=== PATIENT | female | born 1970 | race Caucasian/White ===

== ENCOUNTER 2017-08-24 09:31 | Emergency (ER) | payer OTHER ==
[~2017-08-24] VITALS: Ht 162.6 cm; Wt 68.0 kg
[~2017-08-24 09:31] MED LIST: AUGMENTIN 875875 MG PO; IBUPROFEN 200200 M1 PO; IBUPROFEN 800800 M1 PO; MECLIZINE HCL25 M1 PO; NOHOMEMEDICATIONS; ONDANSETRON HCL4 M2 PO; ROBAXIN 750 MG750 M1 PO; ZOFRAN ODT4 MG PO; ZOLOFT
[2017-08-24 09:58] LABS: ABSOLUTE BASOPHILS 0.1 thou/uL (0.0-0.2); ABSOLUTE EOSINOPHILS 0.1 thou/uL (0.0-0.7); ABSOLUTE LYMPHOCYTES 2.5 thou/uL (0.8-5.3); ABSOLUTE MONOCYTES 0.5 thou/uL (0.0-1.2); ABSOLUTE NEUTROPHILS 5.9 thou/uL (1.6-8.1); BASOPHILS 1.1 %; EOSINOPHILS 0.9 %; HEMATOCRIT 43.3 % (37.0-47.0); HEMOGLOBIN 15.4 gm/dL (12.0-15.0); LYMPHOCYTES 27.8 %; MCH 32.5 pg (26.0-34.0); MCHC 35.6 g/dL (28.0-37.0); MCV 91.4 fL (80.0-100.0); MPV 6.8 fl. (7.2-11.1); NUCLEATED RBCS 0 /100WBC; PLATELET COUNT* 285 thou/uL (150-400); POLYS 65.2 %; RBC 4.74 mil/uL (4.20-5.00); RDW-CV 12.6 % (10.5-14.5); WBC 9.1 thou/uL (4.0-11.0)
[2017-08-24 10:05] LABS: INR 1.1; PROTIME 10.5 Seconds (9.20-11.50)
[2017-08-24 10:06] LABS: ANION GAP 9 mmol/L (7-16); BUN 8 mg/dL (7-18); CALCIUM 9.2 mg/dL (8.5-10.1); CHLORIDE 103 mmol/L (98-107); CO2 26 mmol/L (21-32); CREATININE 0.8 mg/dL (0.6-1.3); GLUCOSE 94 mg/dL (70-99); POTASSIUM 3.7 mmol/L (3.5-5.1); SODIUM 138 mmol/L (136-145)
[2017-08-24 10:17] LABS: ALBUMIN 3.9 g/dL (3.4-5.0); ALKALINE PHOSPHATASE 88 U/L (46-116); LIPASE 96 U/L (73-393); NT-PRO BRAIN NAT PEPTIDE 30 pg/mL (<300); SGOT 15 U/L (15-37); SGPT 29 U/L (30-65); TOTAL BILIRUBIN 0.7 mg/dL (<0.1-1.0); TOTAL PROTEIN 7.2 g/dL (6.4-8.2); TROPONIN-I LEVEL <0.06 ng/mL (<0.06)
[2017-08-24] MEDS ORDERED: AMOXICILLIN500 M1 PO (12:10)
[2017-08-24] MEDS ORDERED: HYDROCODON-ACE1 EAC7 PO (12:10)
[2017-08-24 12:20] VITALS: BP 109/54
--- NOTE | 2017-08-24 16:10 | EKG ---
[place] [address] ELECTROCARDIOGRAM REPORT Name: MATTHIAS TREADWELL Room: [facility]#: [id number] Admission: 08/24/17 Attend Phys: Discharge: 08/24/17 Date of : 74 Report #: [id number] THIS REPORT FOR: //name// [facility] ED Test Date: 2017-08-24 Test Time: 09:35:56 Pat Name: MATTHIAS MILE Department: Room: Gender: F Can Doffer: : 1970 Requested By: Jonny Da Silva Order Number: [id number] : Alex Crews Measurements Intervals [place] Rate: 64 P: 62 [place]: 158 QRS: 72 QRSD: 93 T: 58 QT: 375 QTc: 387 Interpretive Statements Sinus rhythm Compared to ECG 11/27/2016 10:35:37 No significant changes Electronically Signed On 08-24-2017 16:10:36 CDT by Alex Crews [email or web address] <ELECTRONICALLY SIGNED> By: Alex Crews MD, [facility] 08/24/17 1610 0935 0935 Alex Crews MD, FACC /EPI
== END 2017-08-24 12:21 | disposition home or self-care (01) ==
LOC: M.ERS 09:31
PROVIDERS: Emergency Medicine
DX: N63.20 Unspecified lump in the left breast, unspecified quadrant (principal); R07.89 Other chest pain; G43.909 Migraine, unspecified, not intractable, without status migrainosus; F17.210 Nicotine dependence, cigarettes, uncomplicated

== ENCOUNTER 2018-04-06 00:47 | Emergency (ER) | payer OTHER ==
[~2018-04-06] VITALS: Ht 162.6 cm; Wt 72.6 kg
[~2018-04-06 00:47] MED LIST changes: +AMOXICILLIN500 M1 PO; +HYDROCODON-ACE1 EAC7 PO
[2018-04-06] MEDS ORDERED: FLEXERIL PO (02:03)
[2018-04-06 02:11] VITALS: BP 127/61
== END 2018-04-06 02:11 | disposition home or self-care (01) ==
LOC: M.ERS 00:47
DX: S06.0X0A Concussion without loss of consciousness, initial encounter (principal); W17.89XA Other fall from one level to another, initial encounter; Y93.89 Activity, other specified; Y92.89 Other specified places as the place of occurrence of the external cause; Y99.8 Other external cause status; M54.2 Cervicalgia; G43.909 Migraine, unspecified, not intractable, without status migrainosus; F17.210 Nicotine dependence, cigarettes, uncomplicated

== ENCOUNTER 2018-05-06 21:22 | Emergency (ER) | payer OTHER ==
[~2018-05-06] VITALS: Ht 162.6 cm; Wt 72.6 kg
[~2018-05-06 21:22] MED LIST changes: +FLEXERIL PO
[2018-05-06] MEDS ORDERED: DEPRESSION (21:41)
[2018-05-06 22:02] LABS: ABSOLUTE EOSINOPHILS 0.1 thou/uL (0.0-0.7); ABSOLUTE MONOCYTES 0.4 thou/uL (0.0-1.2); ABSOLUTE NEUTROPHILS 4.3 thou/uL (1.6-8.1); BASOPHILS 0.6 %; EOSINOPHILS 1.7 %; HEMATOCRIT 42.4 % (37.0-47.0); HEMOGLOBIN 14.7 gm/dL (12.0-15.0); LYMPHOCYTES 38.1 %; MCHC 34.7 g/dL (28.0-37.0); MCV 92.3 fL (80.0-100.0); MONOCYTES 4.5 %; MPV 7.3 fl. (7.2-11.1); NUCLEATED RBCS 0 /100WBC; PLATELET COUNT* 290 thou/uL (150-400); POLYS 55.1 %; RDW-CV 12.7 % (10.5-14.5); WBC 7.8 thou/uL (4.0-11.0)
[2018-05-06 22:05] LABS: ANION GAP 11 mmol/L (7-16); BUN 11 mg/dL (7-18); CALCIUM 9.1 mg/dL (8.5-10.1); CHLORIDE 103 mmol/L (98-107); CO2 25 mmol/L (21-32); CREATININE 0.8 mg/dL (0.6-1.3); GLUCOSE 129 mg/dL (70-99); POTASSIUM 3.5 mmol/L (3.5-5.1); SODIUM 139 mmol/L (136-145)
[2018-05-06 22:11] LABS: ALBUMIN 3.9 g/dL (3.4-5.0); ALKALINE PHOSPHATASE 84 U/L (46-116); LIPASE 137 U/L (73-393); SGOT 12 U/L (15-37); SGPT 30 U/L (30-65); TOTAL BILIRUBIN 0.2 mg/dL (<0.1-1.0); TOTAL PROTEIN 7.2 g/dL (6.4-8.2); TROPONIN-I LEVEL <0.06 ng/mL (<0.06)
[2018-05-06 22:15] LABS: APTT 24.4 Seconds (25.0-31.3); PROTIME 10.1 Seconds (9.20-11.50)
[2018-05-06] MEDS ORDERED: SYNTHROID25 MC1 PO (22:59)
[2018-05-06 23:25] VITALS: BP 111/52
--- NOTE | 2018-05-07 11:19 | EKG ---
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
== END 2018-05-06 23:25 | disposition home or self-care (01) ==
LOC: M.ERS 21:22
PROVIDERS: Personal Emergency Response Attendant
DX: R07.89 Other chest pain (principal); G43.909 Migraine, unspecified, not intractable, without status migrainosus; F32.9 Major depressive disorder, single episode, unspecified; E03.9 Hypothyroidism, unspecified; F17.210 Nicotine dependence, cigarettes, uncomplicated; Z98.890 Other specified postprocedural states; Z85.41 Personal history of malignant neoplasm of cervix uteri; Z88.8 Allergy status to other drugs, medicaments and biological substances

== ENCOUNTER 2019-09-08 23:25 | Emergency (ER) | payer OTHER ==
[~2019-09-08] VITALS: Ht 165.1 cm; Wt 70.3 kg
[~2019-09-08 23:25] MED LIST changes: +DEPRESSION; +SYNTHROID25 MC1 PO
[2019-09-08 23:56] LABS: ABSOLUTE BASOPHILS 0.1 thou/uL (0.0-0.2); ABSOLUTE EOSINOPHILS 0.1 thou/uL (0.0-0.7); ABSOLUTE LYMPHOCYTES 2.8 thou/uL (0.8-5.3); ABSOLUTE MONOCYTES 0.6 thou/uL (0.0-1.2); ABSOLUTE NEUTROPHILS 9.7 thou/uL (1.6-8.1); BASOPHILS 0.9 %; EOSINOPHILS 0.7 %; HEMATOCRIT 38.4 % (37.0-47.0); HEMOGLOBIN 13.6 gm/dL (12.0-15.0); MCH 32.2 pg (26.0-34.0); MCHC 35.5 g/dL (28.0-37.0); MCV 90.8 fL (80.0-100.0); MONOCYTES 4.8 %; MPV 7.3 fl. (7.2-11.1); NUCLEATED RBCS 0 /100WBC; PLATELET COUNT* 269 thou/uL (150-400); POLYS 72.6 %; RBC 4.23 mil/uL (4.20-5.00); RDW-CV 12.7 % (10.5-14.5); WBC 13.3 thou/uL (4.0-11.0)
[2019-09-09] LABS: CALCIUM 8.6 mg/dL (8.5-10.1); CREATININE 0.8 mg/dL (0.6-1.3); POTASSIUM 3.9 mmol/L (3.5-5.1)
[2019-09-09 00:05] LABS: ALBUMIN 3.7 g/dL (3.4-5.0); TOTAL BILIRUBIN 0.3 mg/dL (<0.1-1.0); TOTAL PROTEIN 6.7 g/dL (6.4-8.2)
[2019-09-09] MEDS ORDERED: HYDROCODON-ACE1 EAC7 PO (01:39)
[2019-09-09] MEDS ORDERED: ZOFRAN ODT4 MG PO (01:39)
[2019-09-09] MEDS ORDERED: CYCLOBENZAPRINE5 MG PO (01:39)
[2019-09-09 01:52] VITALS: BP 127/60
--- NOTE | 2019-09-09 14:46 | EKG ---
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: [place] : 1970 Requested By: Emi Wu Order Number: [id number] MD: Quinton Livingston Measurements Intervals [place] Rate: 79 P: 62 [place]: 151 QRS: 74 QRSD: 90 T: 50 QT: 362 QTc: 416 Interpretive Statements Sinus rhythm Baseline wander in lead(s) II Compared to ECG 05/06/2018 21:28:36 No significant changes Electronically Signed On 09-09-2019 14:44:29 CDT by Quinton Livingston [email or web address] <ELECTRONICALLY SIGNED> By: Quinton Livingston MD, [facility] 09/09/19 1444 2339 2339 Quinton Livingston MD, [facility] /EPI
== END 2019-09-09 01:53 | disposition home or self-care (01) ==
LOC: M.ERS 23:25
PROVIDERS: Personal Emergency Response Attendant
DX: S43.492A Other sprain of left shoulder joint, initial encounter (principal); S20.312A Abrasion of left front wall of thorax, initial encounter; S70.311A Abrasion, right thigh, initial encounter; S80.212A Abrasion, left knee, initial encounter; S40.212A Abrasion of left shoulder, initial encounter; S70.212A Abrasion, left hip, initial encounter; S09.90XA Unspecified injury of head, initial encounter; M62.838 Other muscle spasm; E03.9 Hypothyroidism, unspecified; G43.909 Migraine, unspecified, not intractable, without status migrainosus; F32.9 Major depressive disorder, single episode, unspecified; F17.210 Nicotine dependence, cigarettes, uncomplicated; Z98.51 Tubal ligation status; Z85.41 Personal history of malignant neoplasm of cervix uteri; Z88.8 Allergy status to other drugs, medicaments and biological substances; V86.59XA Driver of other special all-terrain or other off-road motor vehicle injured in nontraffic accident, initial encounter; Y93.89 Activity, other specified; Y92.89 Other specified places as the place of occurrence of the external cause; Y99.8 Other external cause status

== ENCOUNTER 2019-10-03 09:54 | Emergency (ER) | payer OTHER ==
[~2019-10-03] VITALS: Ht 162.6 cm; Wt 72.6 kg
[~2019-10-03 09:54] MED LIST changes: +CYCLOBENZAPRINE5 MG PO
[2019-10-03 11:02] LABS: ABSOLUTE BASOPHILS 0.1 thou/uL (0.0-0.2); ABSOLUTE EOSINOPHILS 0.1 thou/uL (0.0-0.7); ABSOLUTE LYMPHOCYTES 2.1 thou/uL (0.8-5.3); ABSOLUTE MONOCYTES 0.5 thou/uL (0.0-1.2); ABSOLUTE NEUTROPHILS 6.3 thou/uL (1.6-8.1); BASOPHILS 0.9 %; EOSINOPHILS 1.6 %; HEMATOCRIT 38.8 % (37.0-47.0); HEMOGLOBIN 13.6 gm/dL (12.0-15.0); LYMPHOCYTES 23.4 %; MCH 32.2 pg (26.0-34.0); MCHC 35.1 g/dL (28.0-37.0); MCV 91.5 fL (80.0-100.0); MONOCYTES 5.1 %; MPV 7.2 fl. (7.2-11.1); NUCLEATED RBCS 0 /100WBC; PLATELET COUNT* 265 thou/uL (150-400); RBC 4.24 mil/uL (4.20-5.00); RDW-CV 12.6 % (10.5-14.5); WBC 9.1 thou/uL (4.0-11.0)
[2019-10-03 11:07] LABS: URINE BILIRUBIN NEGATIVE (Negative); URINE BLOOD 2+ (Negative); URINE CLARITY CLEAR; URINE COLOR YELLOW; URINE GLUCOSE-RANDOM NEGATIVE (Negative); URINE KETONES NEGATIVE (Negative); URINE LEUKOCYTES-REFLEX NEGATIVE (Negative); URINE NITRITE-REFLEX NEGATIVE (Negative); URINE PROTEIN NEGATIVE (Negative); URINE SPECIFIC GRAVITY 1.015 (1.005-1.030); URINE UROBILINOGEN 0.2 E.U./dl (0.2-1.0)
[2019-10-03 11:09] LABS: CALCIUM 8.3 mg/dL (8.5-10.1); CREATININE 0.7 mg/dL (0.6-1.3); POTASSIUM 3.8 mmol/L (3.5-5.1)
[2019-10-03 11:14] LABS: ALBUMIN 3.4 g/dL (3.4-5.0); TOTAL BILIRUBIN 0.5 mg/dL (<0.1-1.0); TOTAL PROTEIN 6.4 g/dL (6.4-8.2)
[2019-10-03 11:14] LABS: AMP/METHAMP Negative (Negative); BARBITURATES Negative (Negative); BENZODIAZEPINES Negative (Negative); COCAINE Negative (Negative); METHADONE Negative (Negative); OPIATES Negative (Negative); PCP Negative (Negative); THC Negative (Negative)
[2019-10-03 11:20] LABS: AMORPHOUS URATES Few /LPF (None Seen); BACTERIA-REFLEX 1-9 Few /HPF (None Seen); CASTS None Seen /LPF (None Seen); MUCUS 0-3 Light strn/LPF (None Seen); SQUAMOUS >10 Many /LPF (0-3); URINE RBC 3-10 Few /HPF (0-2); URINE WBC-REFLEX None Seen /HPF (0-5)
[2019-10-03 12:44] VITALS: BP 106/58
== END 2019-10-03 12:44 | disposition home or self-care (01) ==
LOC: M.ERS 09:54
PROVIDERS: Personal Emergency Response Attendant
DX: G43.909 Migraine, unspecified, not intractable, without status migrainosus (principal); E03.9 Hypothyroidism, unspecified; F32.9 Major depressive disorder, single episode, unspecified; F17.210 Nicotine dependence, cigarettes, uncomplicated; Z85.41 Personal history of malignant neoplasm of cervix uteri; Z98.51 Tubal ligation status; Z88.8 Allergy status to other drugs, medicaments and biological substances

== ENCOUNTER 2020-05-09 02:56 | Inpatient (IN) | payer OTHER ==
[~2020-05-09] VITALS: Ht 165.1 cm; Wt 70.8 kg
--- NOTE | ~2020-05-09 | OP ---
[address] [address] OPERATIVE REPORT Name: MILEMATTHIAS Room: [address] IN M.R.#: [id number] Admission: 05/09/20 Attend Phys: Francois Rolle Discharge: 05/12/20 Date of : 74 Report #: [id number] THIS REPORT FOR: cc: FAM - No family physician/PCP FAM - No family physician/PCP ~ Raquel Wang DO DICTATED BY: Dion Camp DO DATE OF SERVICE: 05/11/2020 PREOPERATIVE DIAGNOSES: Gallstone pancreatitis and cholecystitis. POSTOPERATIVE DIAGNOSES: Gallstone pancreatitis and cholecystitis. PROCEDURE PERFORMED: Laparoscopic cholecystectomy with intraoperative cholangiogram and surgeon interpretation of images. SURGEON: Raquel Wang DO CO-SURGEON: Dion Camp DO, PGY-4 PEDIATRIC REGISTERED NURSE: None. ANESTHESIA: General and regional. ESTIMATED BLOOD LOSS: 20 mL. SPECIMEN: Gallbladder. COMPLICATIONS: None. FINDINGS: Edematous gallbladder with evidence of acute cholecystitis. Cholangiogram showed no common bile duct or hepatic duct obstruction with free flow of contrast into the duodenum. 15 seconds of fluoroscopy. HISTORY OF PRESENT ILLNESS: The patient is a 49-year-old female who was admitted to the hospital with gallstone pancreatitis. She also had CT findings consistent with cholecystitis. It was determined that she would benefit from laparoscopic cholecystectomy with intraoperative cholangiogram. Risks, complications, and benefits were discussed at length with her and she agreed to proceed with surgery. DESCRIPTION OF PROCEDURE: After consent was obtained, the patient was taken to the operating room and placed in the supine position. SCDs applied to bilateral lower extremities, safety belt placed across the patient's waist. HAROON Hayes was [place] [id number] OPERATIVE REPORT Name: MATTHIAS TREADWELL Room: [address] IN ..#: [id number] Admission: 05/09/20 Attend Phys: Francois Rolle Discharge: 05/12/20 Date of : 74 Report #: [id number] given during her hospitalization and this was continued during surgery. The patient underwent general endotracheal anesthesia without any complication. The patient's abdomen was prepped and draped in a standard sterile fashion. A timeout was performed confirming patient and procedure. An 11 blade scalpel was used to make an incision just below the umbilicus in a horizontal fashion. S retractor was used to bluntly dissect down to the level of the fascia. Once the fascia was encountered, it was grasped between 2 Kochers and elevated. Electrocautery was used to incise the fascia. Two stitches of 0 Vicryl were placed on either side of the fascia. Hemostat was used to bluntly enter the peritoneum. Finger sweep was performed to confirm no intraabdominal adhesions. A 10 mm Shawna trocar was inserted into the abdomen and secured in place. Insufflation was initiated without any complication. Camera was then inserted and intra-abdominal contents were inspected. The patient was placed in reverse Trendelenburg, rotated towards the left. A 5 mm trocar was placed subxiphoid under direct visualization, two more 5 mm trocars were placed in the right upper quadrant under direct visualization. Gallbladder was grasped and elevated. There were multiple adhesions to the posterior portion of the gallbladder and these were taken down with hook electrocautery. A combination of blunt dissection using a suction project lead was used to help strip the gallbladder of its fatty adhesions. Once the gallbladder was cleaned off, there was a large artery just medial to the presumed duct that we could easily visualize, this was isolated with a [place] dissector. It was clipped and cut to allow for better access to the cystic duct. We then visualized our cystic duct and the lateral aspect of the gallbladder. This was carefully dissected out using a combination of hook electrocautery and [place] dissection. Once the duct was isolated and seen going up into the gallbladder, we then used a Valdes clamp to go across the proximal portion of the duct. We placed our catheter within the cystic duct and saline was flushed easily. We then brought our fluoroscopy unit into the sterile field. Images were taken to confirm correct position and then under live fluoroscopy, we injected the cystic duct with contrast. Contrast could be seen flowing down easily into the common bile duct and into the duodenum. The pancreatic duct and hepatic ducts were also visualized and were free from any obstructive process. At this point, we canceled fluoroscopy after about 15 seconds and removed the unit from the sterile field. We then placed the patient back in reverse Trendelenburg. The Valdes clamp was removed. There was another small artery that was found on the medial aspect and this was clipped and cut. Due to the large size of the cystic duct, we then elected to upsize our 5 mm subxiphoid port to a 12 mm trocar. We then placed a large clip fastener technologist into the abdomen and placed 3 clips proximally and 2 clips distally on the cystic duct. The structure was cut. We then used hook electrocautery to carefully dissect the gallbladder off the bed of the liver. The gallbladder was then placed in a laparoscopic EndoCatch bag. Liver bed was inspected. Once hemostasis was assured we irrigated the right upper quadrant copiously with saline. All fluid was suctioned out. Clips were inspected. There was no evidence of bleeding or bile leak. The gallbladder and its contents were removed from the [facility] [address] [place] [address] OPERATIVE REPORT Name: MATTHIAS TREADWELL Room: [address] IN ..#: [id number] Admission: 05/09/20 Attend Phys: Francois Rolle Discharge: 05/12/20 Date of : 74 Report #: [id number] infraumbilical trocar site. Infraumbilical fascia was then reapproximated with 1 stitch of 0 Vicryl in a ikjepo-hk-alkay fashion. Subcutaneous tissue was reapproximated with 3-0 Vicryl and all skin incisions reapproximated with 4-0 Monocryl in a subcuticular. Sterile skin glue was applied to all incisions. All needle, instrument, and sponge counts were correct x 2 at the end of the case. The patient was then awoken from general anesthesia and transferred to PACU in stable condition. By: [id number] Wang DO /nt
[2020-05-09 03:03] VITALS: BP 107/47
[2020-05-09 03:29] LABS: NUCLEATED RBCS 0 /100WBC
[2020-05-09 03:32] LABS: ABSOLUTE BASOPHILS 0.1 thou/uL (0.0-0.2); ABSOLUTE EOSINOPHILS 0.1 thou/uL (0.0-0.7); ABSOLUTE LYMPHOCYTES 2.2 thou/uL (0.8-5.3); ABSOLUTE MONOCYTES 0.6 thou/uL (0.0-1.2); ABSOLUTE NEUTROPHILS 7.8 thou/uL (1.6-8.1); BASOPHILS 0.9 %; EOSINOPHILS 0.6 %; HEMATOCRIT 40.9 % (37.0-47.0); HEMOGLOBIN 14.4 gm/dL (12.0-15.0); LYMPHOCYTES 20.1 %; MCH 31.9 pg (26.0-34.0); MCHC 35.3 g/dL (28.0-37.0); MCV 90.6 fL (80.0-100.0); MONOCYTES 5.9 %; MPV 6.8 fl. (7.2-11.1); PLATELET COUNT* 266 thou/uL (150-400); POLYS 72.5 %; RBC 4.52 mil/uL (4.20-5.00); RDW-CV 12.1 % (10.5-14.5); WBC 10.7 thou/uL (4.0-11.0)
[2020-05-09 03:40] LABS: CALCIUM 9.8 mg/dL (8.5-10.1); CREATININE 0.9 mg/dL (0.6-1.3); POTASSIUM 3.7 mmol/L (3.5-5.1)
[2020-05-09 03:47] LABS: PROTIME 10.6 Seconds (9.20-11.50)
[2020-05-09 03:51] LABS: ALBUMIN 3.8 g/dL (3.4-5.0); TOTAL BILIRUBIN 0.7 mg/dL (<0.1-1.0); TOTAL PROTEIN 6.9 g/dL (6.4-8.2)
[2020-05-09 05:34] LABS: URINE BILIRUBIN NEGATIVE (Negative); URINE BLOOD TRACE (Negative); URINE CLARITY CLEAR; URINE COLOR YELLOW; URINE GLUCOSE-RANDOM NEGATIVE (Negative); URINE KETONES NEGATIVE (Negative); URINE LEUKOCYTES-REFLEX NEGATIVE (Negative); URINE NITRITE-REFLEX NEGATIVE (Negative); URINE PROTEIN NEGATIVE (Negative); URINE SPECIFIC GRAVITY <= 1.005 (1.005-1.030); URINE UROBILINOGEN 0.2 E.U./dl (0.2-1.0)
[2020-05-09 05:41] LABS: AMP/METHAMP Negative (Negative); BARBITURATES Negative (Negative); BENZODIAZEPINES Negative (Negative); COCAINE Negative (Negative); METHADONE Negative (Negative); OPIATES POSITIVE (Negative); PCP Negative (Negative); THC Negative (Negative)
[2020-05-09 06:50] VITALS: BP 114/45
[2020-05-09 07:25] VITALS: BP 105/56
[2020-05-09 09:10] LABS: CHOLESTEROL 237 mg/dL (<200); HDL CHOLESTEROL 27 mg/dL (>40); LDL CHOLESTEROL 185 mg/dL (<100); SERUM ASSESSMENT Clear; TC:HDL 8.8 Ratio (Not establshd); TRIGLYCERIDE 129 mg/dL (<150); VLDL 26 mg/dL (<40)
[2020-05-09 16:39] VITALS: BP 94/46
[2020-05-09 20:42] VITALS: BP 100/50
[2020-05-10 04:36] LABS: HEMATOCRIT 36.3 % (37.0-47.0); HEMOGLOBIN 12.6 gm/dL (12.0-15.0); MCH 31.8 pg (26.0-34.0); MCHC 34.6 g/dL (28.0-37.0); MCV 92.1 fL (80.0-100.0); MPV 6.6 fl. (7.2-11.1); RBC 3.94 mil/uL (4.20-5.00); RDW-CV 12.5 % (10.5-14.5); WBC 9.4 thou/uL (4.0-11.0)
[2020-05-10 05:06] LABS: ALBUMIN 2.8 g/dL (3.4-5.0); CREATININE 0.8 mg/dL (0.6-1.3); MAGNESIUM 1.8 mg/dL (1.8-2.4); POTASSIUM 3.7 mmol/L (3.5-5.1); TOTAL BILIRUBIN 0.9 mg/dL (<0.1-1.0); TOTAL PROTEIN 5.3 g/dL (6.4-8.2)
[2020-05-10 05:26] LABS: CALCIUM 7.6 mg/dL (8.5-10.1)
[2020-05-10 08:01] VITALS: BP 102/58
[2020-05-10 16:43] VITALS: BP 95/54
[2020-05-10 20:00] VITALS: BP 95/51
[2020-05-11 04:57] LABS: HEMOGLOBIN 11.2 gm/dL (12.0-15.0); MCH 31.8 pg (26.0-34.0); MCHC 34.9 g/dL (28.0-37.0); MCV 91.2 fL (80.0-100.0); MPV 6.9 fl. (7.2-11.1); RBC 3.51 mil/uL (4.20-5.00); RDW-CV 12.3 % (10.5-14.5); WBC 6.1 thou/uL (4.0-11.0)
[2020-05-11 05:28] LABS: ALBUMIN 2.6 g/dL (3.4-5.0); CALCIUM 7.5 mg/dL (8.5-10.1); CREATININE 0.7 mg/dL (0.6-1.3); POTASSIUM 3.4 mmol/L (3.5-5.1); TOTAL BILIRUBIN 0.6 mg/dL (<0.1-1.0); TOTAL PROTEIN 5.2 g/dL (6.4-8.2)
--- NOTE | 2020-05-11 05:35 | CON ---
[address] [address] CONSULTATION Name: MILEMATTHIAS CAROLINA Room: [address] IN M.R.#: [id number] Admission: 05/09/20 Attend Phys: Francois Rolle Discharge: Date of : 74 Report #: [id number] THIS REPORT FOR: cc: FAM - No family physician/PCP FAM - No family physician/PCP ~ Carlos Galaviz DO DATE OF SERVICE: 05/10/2020 REFERRING PHYSICIAN: Kapil Morrow DO REASON FOR CONSULTATION: Pancreatitis. IMPRESSION: 1. Gallstone pancreatitis, mild. 2. Mildly elevated liver function tests, but negative MRCP. RECOMMENDATIONS: I reviewed the patient's laboratory test, abdominal ultrasound, CAT scan and MRCP and I agreed that the patient's likely source of pancreatitis is from symptomatic cholelithiasis. Fortunately, her CT scan does not demonstrate much in the way of peripancreatic inflammation, so she should be okay to undergo laparoscopic cholecystectomy whenever feasible with the surgery. I do not feel that she needs to have a preoperative ERCP since there is no evidence for many stones within the biliary tree. I have discussed the plans with the patient as well and she is agreeable to the same. HISTORY OF PRESENT ILLNESS: The patient is a pleasant 49-year-old white female who had a twinge of abdominal pain earlier this week, which got better, but then had really severe abdominal pain that made her to come to the hospital. She has never had this kind of pain before. She did have occasional problems with chronic reflux and indigestion, but nothing on a regular basis. She denies any complaints normally with abdominal pain. She is not taking any anti-inflammatories other than ibuprofen on a p.r.n. basis. She denies dysphagia, odynophagia, postprandial pain normally or any problem with her bowels or bowel frequency. She denied any black stools, tarry stools or any blood in stools. She has never undergone previous studies of her upper and lower GI tract in the past. She presented to the emergency room with these complaints and that had been ongoing for about 18-20 hours and was found to have gallstone pancreatitis. She is now here for further evaluation. ALLERGIES: PAXIL. MEDICATIONS AT HOME: Just p.r.n. medications. She does [place] [address] CONSULTATION Name: MATTHIAS TREADWELL Room: [address]#: [id number] Admission: 05/09/20 Attend Phys: Francois Rolle Discharge: Date of : 74 Report #: [id number] PAST MEDICAL HISTORY: Remarkable for previous bilateral tubal ligation, otherwise has been healthy. SOCIAL HISTORY: She does smoke, cut down from 3 packs a day to 1 pack a day. She does not drink alcohol. She denies any drug use. FAMILY HISTORY: Negative. PHYSICAL EXAMINATION: GENERAL: Pleasant 49-year-old white female who is awake and alert. CARDIOPULMONARY: Revealed a regular rate and rhythm. LUNGS: Clear. ABDOMEN: Soft, minimally tender in epigastric area. No rebound or guarding noted. LABORATORY TESTS: On admission revealed a white count of 10.7, hemoglobin 14.4, platelet count 266,000, MCV is 98.6 and RDW is 12.1. Her complete metabolic panel: Sodium 136, potassium 3.7, chloride 101, bicarbonate 24, BUN 15, creatinine 0.9. Her total bilirubin is 0.7, alkaline phosphatase is 95, AST 42, ALT is 50. Her lipase was 28,629. Her drug screen was positive for opiates. test, was negative. Alcohol level was negative. CT scan of the abdomen and pelvis revealed diffuse gallbladder wall thickening suspicious for cholecystitis. There was diffuse edema of the gallbladder wall with minimal pericholecystic fluid. The pancreas appeared normal on CT scan. MRCP performed on the 1st revealed diffuse wall thickening, adjacent stranding and edema of the gallbladder, compatible with cholecystitis. She does have mild dilation of the common bile duct without evidence for any definite intraductal stones or filling defects. No evidence for stones were noted. There is some mild stranding around the duodenum and pancreatic head, possibly related to underlying gallbladder disease or possible pancreatitis. There also appeared to be a gallstone in the neck of the gallbladder or in the cystic duct. Her most recent lipase is down to 470 as of today with normalization of her liver function tests. DISCUSSION: At the present time, the patient appears to have mild gallstone pancreatitis. We would proceed with typical measures for the same and proceed with surgical intervention when feasible. I will defer the timing of that to surgery at this time. [address] [address] CONSULTATION Name: MATTHIAS TREADWELL Room: [address] IN M.R.#: [id number] Admission: 05/09/20 Attend Phys: Francois Rolle Discharge: Date of : 74 Report #: [id number] I have discussed the plans with the patient as well and she is agreeable to the same. <ELECTRONICALLY SIGNED> By: Carlos Galaviz DO 05/11/20 0535 1718 1939Carlos Galaviz DO /nt
[2020-05-11 07:48] VITALS: BP 109/47
[2020-05-11 09:05] VITALS: BP 109/47
[2020-05-11 09:43] VITALS: BP 109/47
[2020-05-11 16:29] VITALS: BP 108/45
[2020-05-11 19:37] VITALS: BP 99/55
[2020-05-12 00:24] VITALS: BP 104/61
[2020-05-12 04:36] LABS: HEMATOCRIT 30.5 % (37.0-47.0); HEMOGLOBIN 10.5 gm/dL (12.0-15.0); MCH 31.4 pg (26.0-34.0); MCHC 34.5 g/dL (28.0-37.0); MCV 90.9 fL (80.0-100.0); RBC 3.35 mil/uL (4.20-5.00); RDW-CV 12.1 % (10.5-14.5); WBC 11.5 thou/uL (4.0-11.0)
[2020-05-12 05:01] LABS: ALBUMIN 2.7 g/dL (3.4-5.0); CALCIUM 7.9 mg/dL (8.5-10.1); CREATININE 0.8 mg/dL (0.6-1.3); MAGNESIUM 2.1 mg/dL (1.8-2.4); TOTAL BILIRUBIN 0.3 mg/dL (<0.1-1.0); TOTAL PROTEIN 5.5 g/dL (6.4-8.2)
[2020-05-12] MEDS ORDERED: HYDROCODON-ACE1 EAC7 PO (07:38)
[2020-05-12] MEDS ORDERED: IBU800 MG PO (07:38)
[2020-05-12 08:20] VITALS: BP 100/50
[2020-05-12 11:38] VITALS: BP 100/50
--- NOTE | 2020-05-12 13:43 | EKG ---
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
== END 2020-05-12 11:50 | disposition home or self-care (01) | DRG 418 ==
LOC: M.ERS 02:56 → M.TBA-ER 06:14 → M.3W 07:05
PROVIDERS: Emergency Medicine; Internal Medicine; Surgery; ADMIT Internal Medicine; ATTEND Internal Medicine
DX: K85.10 Biliary acute pancreatitis without necrosis or infection (principal); K80.00 Calculus of gallbladder with acute cholecystitis without obstruction; G43.909 Migraine, unspecified, not intractable, without status migrainosus; F32.9 Major depressive disorder, single episode, unspecified; E03.9 Hypothyroidism, unspecified; F41.9 Anxiety disorder, unspecified; F17.200 Nicotine dependence, unspecified, uncomplicated; Z20.822 Contact with and (suspected) exposure to COVID-19; Z85.41 Personal history of malignant neoplasm of cervix uteri; Z79.899 Other long term (current) drug therapy; Z88.8 Allergy status to other drugs, medicaments and biological substances

== ENCOUNTER 2020-07-20 21:12 | Emergency (ER) | payer OTHER ==
[~2020-07-20] VITALS: Ht 162.6 cm; Wt 74.8 kg
[~2020-07-20 21:12] MED LIST changes: +IBU800 MG PO
[2020-07-20 21:26] LABS: URINE BILIRUBIN NEGATIVE (Negative); URINE BLOOD 1+ (Negative); URINE CLARITY CLEAR; URINE COLOR YELLOW; URINE GLUCOSE-RANDOM NEGATIVE (Negative); URINE KETONES NEGATIVE (Negative); URINE LEUKOCYTES-REFLEX NEGATIVE (Negative); URINE NITRITE-REFLEX NEGATIVE (Negative); URINE PROTEIN NEGATIVE (Negative)
[2020-07-20 21:40] LABS: ABSOLUTE BASOPHILS 0.1 thou/uL (0.0-0.2); ABSOLUTE EOSINOPHILS 0.1 thou/uL (0.0-0.7); ABSOLUTE LYMPHOCYTES 2.9 thou/uL (0.8-5.3); ABSOLUTE MONOCYTES 0.5 thou/uL (0.0-1.2); ABSOLUTE NEUTROPHILS 7.2 thou/uL (1.6-8.1); BASOPHILS 0.7 %; EOSINOPHILS 1.1 %; HEMATOCRIT 40.3 % (37.0-47.0); LYMPHOCYTES 26.8 %; MCH 31.7 pg (26.0-34.0); MCHC 34.7 g/dL (28.0-37.0); MCV 91.3 fL (80.0-100.0); MONOCYTES 4.6 %; MPV 6.8 fl. (7.2-11.1); NUCLEATED RBCS 0 /100WBC; PLATELET COUNT* 253 thou/uL (150-400); POLYS 66.8 %; RBC 4.41 mil/uL (4.20-5.00); RDW-CV 12.9 % (10.5-14.5); WBC 10.8 thou/uL (4.0-11.0)
[2020-07-20 21:46] LABS: CALCIUM 8.6 mg/dL (8.5-10.1); CREATININE 0.7 mg/dL (0.6-1.3); POTASSIUM 3.5 mmol/L (3.5-5.1)
[2020-07-20 21:51] LABS: ALBUMIN 3.7 g/dL (3.4-5.0); TOTAL BILIRUBIN 0.4 mg/dL (<0.1-1.0); TOTAL PROTEIN 6.6 g/dL (6.4-8.2)
[2020-07-20 21:54] LABS: CASTS None Seen /LPF (None Seen); SQUAMOUS >10 Many /LPF (0-3)
[2020-07-20 21:58] LABS: URINE WBC-REFLEX 0-5 Rare /HPF (0-5)
[2020-07-20 21:59] LABS: BACTERIA-REFLEX 1-9 Few /HPF (None Seen); CRYSTALS None Seen /LPF (None Seen); URINE RBC 3-10 Few /HPF (0-2)
[2020-07-21] MEDS ORDERED: HYDROCODON-ACE1 EAC8 PO (00:47)
[2020-07-21] MEDS ORDERED: ZOFRAN ODT4 MG PO (00:47)
[2020-07-21 01:02] VITALS: BP 108/62
== END 2020-07-21 01:02 | disposition home or self-care (01) ==
LOC: M.ERS 21:12
PROVIDERS: Emergency Medicine
DX: R10.31 Right lower quadrant pain (principal); R11.2 Nausea with vomiting, unspecified; R19.7 Diarrhea, unspecified; G43.909 Migraine, unspecified, not intractable, without status migrainosus; F32.9 Major depressive disorder, single episode, unspecified; E03.9 Hypothyroidism, unspecified; F17.210 Nicotine dependence, cigarettes, uncomplicated; Z90.49 Acquired absence of other specified parts of digestive tract; Z98.51 Tubal ligation status; Z88.8 Allergy status to other drugs, medicaments and biological substances; Z85.41 Personal history of malignant neoplasm of cervix uteri

== ENCOUNTER 2020-12-21 10:15 | Emergency (ER) | payer OTHER ==
[~2020-12-21] VITALS: Ht 162.6 cm; Wt 70.3 kg
[~2020-12-21 10:15] MED LIST changes: +HYDROCODON-ACE1 EAC8 PO
[2020-12-21] MEDS ORDERED: OMEPRAZOLE 20 M20 M1 PO (10:31)
[2020-12-21] MEDS ORDERED: HYDROXYZINE HCL25 M2 PO (10:32)
[2020-12-21 14:47] VITALS: BP 125/64
== END 2020-12-21 14:47 | disposition left against medical advice (07) ==
LOC: M.ERS 10:15
DX: R10.9 Unspecified abdominal pain (principal); Z53.21 Procedure and treatment not carried out due to patient leaving prior to being seen by health care provider